=== PATIENT | female | born 1980 | race African-American/Black ===

== ENCOUNTER 2021-05-27 05:28 | Emergency (ER) | payer SELFPAY ==
[2021-05-27] MEDS ORDERED: Ketorolac Tromethamine 30 MG/ML VIAL ONE (06:00)
[2021-05-27] MEDS ORDERED: Acetaminophen 500 MG TAB ONE (06:00)
== END 2021-05-27 06:32 | disposition home or self-care (01) ==
LOC: CSHERS 05:28
DX: L73.9 Follicular disorder, unspecified (principal); D17.9 Benign lipomatous neoplasm, unspecified
CPT/HCPCS: 96372; 99283; J1885

== ENCOUNTER 2022-08-16 10:39 | Emergency (ER) | payer BC, OTHER, SELFPAY ==
[2022-08-16] MEDS ORDERED: Acetaminophen 500 MG TAB ONE (11:28)
[2022-08-16 12:09] LABS: SARS-CoV-2 NAA Rapid Test DETECTED (NotDetected)
== END 2022-08-16 12:28 | disposition home or self-care (01) ==
LOC: CSHERS 10:39
DX: U07.1 COVID-19 (principal)
CPT/HCPCS: 99283

== ENCOUNTER 2023-06-06 19:01 | Emergency (ER) | payer SELFPAY ==
[2023-06-06] MEDS ORDERED: Ketorolac Tromethamine 30 MG (1 mL) VIAL ONE (19:55)
[2023-06-06] MEDS ORDERED: Ondansetron ODT 4 MG TAB ONE (19:55)
[2023-06-06 20:02] LABS: SARS-CoV-2 NAA Rapid Test Not Detected (NotDetected)
== END 2023-06-06 20:24 | disposition home or self-care (01) ==
LOC: CSHERS 19:01
DX: J06.9 Acute upper respiratory infection, unspecified (principal)
CPT/HCPCS: 71045; 93005; 93010; 96372; J1885; Q0162